=== PATIENT | male | born 1990 | race Caucasian/White ===

== ENCOUNTER 2016-09-03 18:35 | Emergency (ER) | payer OTHER ==
[~2016-09-03] VITALS: Ht 185.4 cm; Wt 104.3 kg
[2016-09-03] MEDS ORDERED: IBUPROFEN 600 MG TABLET PO ONE ×2 (19:30)
[2016-09-03] MEDS ORDERED: CYCLOBENZAPRINE 10 MG TABLET ONE (19:30)
[2016-09-03] MEDS ORDERED: CYCLOBENZAPRINE 10 MG TABLET PO ONE (19:30)
[2016-09-03 19:39] VITALS: BP 100/71
== END 2016-09-03 19:39 | disposition home or self-care (01) ==
LOC: ER 18:37
DX: M54.5 Low back pain (principal)
CPT/HCPCS: 99283; A4606; Z7610